=== PATIENT | male | born 1945 | race Caucasian/White ===

== ENCOUNTER 2021-09-12 10:59 | Outpatient (CLI) | payer MEDICARE | END 2021-09-12 11:00 | disposition home or self-care (01) | LOC: SCSMRI 10:59 → BICMRI 11:00 | PROVIDERS: ATTEND Nurse Practitioner Family | DX: M47.22 Other spondylosis with radiculopathy, cervical region (principal); M48.02 Spinal stenosis, cervical region | CPT/HCPCS: 72052; 72141 ==